=== PATIENT | male | born 1990 | race Two or more races ===

== ENCOUNTER 2021-05-10 05:47 | Outpatient (CLI) | payer OTHER | END 2021-05-10 23:00 | disposition home or self-care (01) | LOC: LAB 05:47 | DX: Z20.818 Contact with and (suspected) exposure to other bacterial communicable diseases (principal); Z20.828 Contact with and (suspected) exposure to other viral communicable diseases ==

== ENCOUNTER → 2021-05-17 11:58 | Outpatient (CLI) | payer OTHER | END | disposition home or self-care (01) | LOC: LAB 11:58 | PROVIDERS: ATTEND Pediatrics Neonatal-Perinatal Medicine | DX: Z03.818 Encounter for observation for suspected exposure to other biological agents ruled out (principal) ==